=== PATIENT | male | born 1975 ===

== ENCOUNTER 2021-02-06 23:21 | Emergency (ER) | payer SELFPAY ==
[2021-02-06] MEDS ORDERED: Sodium Chloride 0.9% 10 ML Syringe FLUSH PRN (23:23)
[2021-02-06] MEDS ORDERED: Sodium Chloride 0.9% 2.5 ML Syringe FLUSH PRN (23:23)
[2021-02-06] MEDS ORDERED: Famotidine 20 MG/2 ML SDV IVPUSH ONE (23:23)
[2021-02-06] MEDS ORDERED: Alum Hydrox/Mag Hydrox/Simeth 15 ML, Lidocaine 2% 5 ML PO ONE ×2 (23:23)
[2021-02-06] MEDS ORDERED: Aspirin 81 MG Tab.Chew PO ONE (23:23)
--- NOTE | 2021-02-06 23:29 | EDM.PDOC ---
<Jose C Pedro - Last Filed: 02/07/21 06:05> ED HPI GENERAL MEDICAL PROBLEM - General Chief Complaint: Chest Pain Stated Complaint: CHEST PAIN Time Seen by Provider: 02/06/21 23:22 Source of Information: Reports: Patient History Limitations: Reports: No Limitations - History of Present Illness INITIAL COMMENTS - FREE TEXT/NARRATIVE: 45-year-old male remote history of methamphetamine use presents for chest pain. Patient denies any other past medical history. He does note that he ate some spicy peppers. He then began to experience a burning discomfort in his mid epigastrium and substernal chest. It is nonradiating. No associated shortness of breath, nausea, vomiting, diaphoresis. Has never had a stress test and has never had a cardiac cath. Mid chest Pain Score (Numeric/FACES): 7 - Related Data Allergies Allergy/AdvReac Type Severity Reaction Status Date / Time No Known Allergies Allergy Verified 02/06/21 23:31 Home Meds: Home Meds . [No Known Home Meds] 02/06/21 [History] ED ROS GENERAL - Review of Systems Review Of Systems: Comprehensive ROS is negative, except as noted in HPI. ED EXAM, GENERAL - Physical Exam Exam: See Below Exam Limited By: No Limitations General Appearance: Alert, WD/WN, No Apparent Distress Throat/Mouth: Normal Voice, No Airway Compromise Head: Atraumatic, Normocephalic Neck: Normal Inspection Respiratory/Chest: No Respiratory Distress, Lungs Clear, Normal Breath Sounds, No Accessory Muscle Use Cardiovascular: Normal Peripheral Pulses, Regular Rate, Rhythm, No Edema GI/Abdominal: Soft, Non-Tender Extremities: Normal Inspection Neurological: Alert Psychiatric: Normal Affect, Normal Mood Skin Exam: Warm, Dry, Intact, Normal Color #1 Interpretation EKG Date: 02/06/21 Time: 23:21 Rhythm: NSR Rate (Beats/Min): 65 [place]: Normal P-Wave: Present QRS: Normal ST-T: Normal QT: Normal NE/PQ Interval: 135 Comparison: NA - No Prior EKG EKG Interpretation Comments: TWI lead III, otherwise no ischemic changes noted, no prior for comparison Course - Re-Assessments/Exams Free Text/Narrative Re-Assessment/Exam: 02/06/21 23:37 Will give GI cocktail and Pepcid for potential GI etiology of patient's symptoms. Will give aspirin as well. We will follow up labs. 02/07/21 00:21 Patient's pain was poorly controlled after GI cocktail, aspirin, Pepcid. Morphine was given but patient's pain was still very poorly controlled so 1 mg of Dilaudid was ordered. Will get CTA chest abdomen and pelvis to rule out aortic dissection or other intrathoracic or intra-abdominal pathology. We will follow up results and disposition accordingly 02/07/21 03:00 Repeat troponin negative; will f/u CT imaging and disposition accordingly. 02/07/21 03:15 CT imaging does not reveal aortic dissection. 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 The gallbladder shows multiple gallstones with moderate gallbladder distention and mild pericholecystic stranding. Will get ultrasound when available to access for cholecystitis. Will give Zosyn while working up. Patient understands and is agreeable to wait until US is available at 7AM. He currently is comfortable and not requesting additional analgesia at this time. 02/07/21 06:05 Patient resting comfortably without complaints. 02/07/21 07:00 Patient care transitioned to Dr. Doss to follow-up ultrasound imaging and disposition Departure - Departure Disposition: Home, Self-Care 01 Clinical Impression: Cholelithiasis - Discharge Information Referrals: PCP,None [Primary Care Provider] - Forms: ED Department Discharge Additional Instructions: The following information is given to patients seen in the emergency department who are being discharged to home. This information is to outline your options for follow-up care. We provide all patients seen in our emergency department with a follow-up referral. The need for follow-up, as well as the timing and circumstances, are variable depending upon the specifics of your emergency department visit. If you don't have a primary care physician on staff, we will provide you with a referral. We always advise you to contact your personal physician following an emergency department visit to inform them of the circumstance of the visit and for follow-up with them and/or the need for any referrals to a consulting specialist. The emergency department will also refer you to a specialist when appropriate. This referral assures that you have the opportunity for follow-up care with a specialist. All of these measure are taken in an effort to provide you with optimal care, which includes your follow-up. Under all circumstances we always encourage you to contact your private physician who remains a resource for coordinating your care. When calling for follow-up care, please make the office aware that this follow-up is from your recent emergency room visit. If for any reason you are refused follow-up, please contact the [facility] Emergency Department at and asked to speak to the emergency department charge nurse. Please follow up with your primary care physician. If you do not have a primary care physician, see below: [facility] [address] [place] [id number] [facility] [address] [place] [address] Formerly [facility] [address] [place] [address], [address] [place] [address] Above is a number for general surgery that you can follow-up with as outpatient. If you continue to have pain in the area you may need to eventually have your gallbladder taken out but it does not need to be emergently removed. If you have intense pain not able to tolerate any food or water please return to the ED immediately. <Lloyd Doss - Last Filed: 02/07/21 09:09> Course - Vital Signs Last Recorded V/S: Last Vital Signs Temp 97.8 F 02/06/21 23:25 Pulse 81 02/07/21 06:38 Resp 18 02/07/21 05:50 BP 144/84 H 02/07/21 06:38 Pulse Ox 94 L 02/07/21 06:38 - Orders/Labs/Meds Orders: Active Orders 24 hr Category Date Time Status Cardiac Monitoring [RC] . DIRECTED Care 02/06/21 23:23 Active EKG Documentation Completion [RC] STAT Care 02/06/21 23:23 Active Pulse Oximetry [RC] ASDIRECTED Care 02/06/21 23:23 Active CULTURE URINE [RM] Stat Lab 02/07/21 01:42 Received Sodium Chloride 0.9% [Saline Flush] Med 02/06/21 23:23 Active 10 ml FLUSH ASDIRECTED PRN Sodium Chloride 0.9% [Saline Flush] Med 02/06/21 23:23 Active 2.5 ml FLUSH ASDIRECTED PRN Saline Lock Insert [OM.PC] Stat Oth 02/06/21 23:23 Ordered Medication Orders Sodium Chloride (Sodium Chloride 0.9% 10 Ml Syringe) 10 ml FLUSH ASDIRECTED PRN PRN Reason: Keep Vein Open Last Admin: 02/06/21 23:38 Dose: 10 ml Documented by: RASHAD Sodium Chloride (Sodium Chloride 0.9% 2.5 Ml Syringe) 2.5 ml FLUSH ASDIRECTED PRN PRN Reason: Keep Vein Open Last Admin: 02/06/21 23:38 Dose: 2.5 ml Documented by: RASHAD Labs: Laboratory Tests 02/06/21 02/06/21 02/06/21 Range/Units 23:30 23:30 23:30 WBC 9.51 (4.0-11.0) K/uL RBC 4.72 (4.50-5.90) M/uL Hgb 13.6 (13.0-17.0) g/dL Hct 41.0 (38.0-50.0) % MCV 86.9 (80.0-98.0) fL MCH 28.8 (27.0-32.0) pg MCHC 33.2 (31.0-37.0) g/dL RDW Std Deviation 43.5 (28.0-62.0) fl RDW Coeff of Camelia 14 (11.0-15.0) % Plt Count 243 (150-400) K/uL MPV 10.00 (7.40-12.00) fL Neut % (Auto) 74.2 (48.0-80.0) % Lymph % (Auto) 18.1 (16.0-40.0) % [place] % (Auto) 5.7 (0.0-15.0) % Eos % (Auto) 1.9 (0.0-7.0) % Baso % (Auto) 0.1 (0.0-1.5) % Neut # (Auto) 7.1 H (1.4-5.7) K/uL Lymph # (Auto) 1.7 (0.6-2.4) K/uL [place] # (Auto) 0.5 (0.0-0.8) K/uL Eos # (Auto) 0.2 (0.0-0.7) K/uL Baso # (Auto) 0.0 (0.0-0.1) K/uL Nucleated RBC % 0.0 /100WBC Nucleated RBCs # 0 K/uL INR APTT (18.6-31.3) SEC Lactate 1.5 (0.20-2.00) mmol/L Sodium 140 (136-148) mmol/L Potassium 3.8 (3.5-5.1) mmol/L Chloride 104 (98-107) mmol/L Carbon Dioxide 26.5 (21.0-32.0) mmol/L BUN 15 (7.0-18.0) mg/dL Creatinine 1.1 (0.8-1.3) mg/dL Est Cr Clr Drug Dosing 79.29 mL/min Estimated GFR (MDRD) > 60.0 ml/min Glucose 160 H (74-106) mg/dL Calcium 8.6 (8.5-10.1) mg/dL Total Bilirubin 0.2 (0.2-1.0) mg/dL AST 30 (15-37) IU/L ALT 44 (14-63) IU/L Alkaline Phosphatase 100 (46-116) U/L Troponin I < 0.050 (0.000-0.056) ng/mL Total Protein 7.6 (6.4-8.2) g/dL Albumin 3.7 (3.4-5.0) g/dL Globulin 3.9 (2.6-4.0) g/dL Albumin/Globulin Ratio 0.9 (0.9-1.6) Lipase 167 (73-393) U/L Urine Color Urine Appearance Urine pH (5.0-8.0) Ur Specific [place] (1.001-1.035) Urine Protein (NEGATIVE) mg/dL Urine Glucose (UA) (NEGATIVE) mg/dL Urine Ketones (NEGATIVE) mg/dL Urine Occult Blood (NEGATIVE) Urine Nitrite (NEGATIVE) Urine Bilirubin (NEGATIVE) Urine Urobilinogen (<2.0) EU/dL Ur Leukocyte Esterase (NEGATIVE) Urine RBC (0-2/HPF) Urine WBC (0-5/HPF) Ur Epithelial Cells (NONE-FEW) Urine Bacteria (NEGATIVE) Urine Mucus (NONE-MOD) Urine Opiates Screen (NEGATIVE) Ur Oxycodone Screen (NEGATIVE) Urine Methadone Screen (NEGATIVE) Ur Barbiturates Screen (NEGATIVE) Ur Phencyclidine Scrn (NEGATIVE) Ur Amphetamine Screen (NEGATIVE) U Methamphetamines Scrn (NEGATIVE) U Benzodiazepines Scrn (NEGATIVE) U Cocaine Metab Screen (NEGATIVE) U Marijuana (THC) Screen (NEGATIVE) Ethyl Alcohol <3 mg/dL 02/06/21 02/07/21 02/07/21 Range/Units 23:30 01:42 01:42 WBC (4.0-11.0) K/uL RBC (4.50-5.90) M/uL Hgb (13.0-17.0) g/dL Hct (38.0-50.0) % MCV (80.0-98.0) fL MCH (27.0-32.0) pg MCHC (31.0-37.0) g/dL RDW Std Deviation (28.0-62.0) fl RDW Coeff of Camelia (11.0-15.0) % Plt Count (150-400) K/uL MPV (7.40-12.00) fL Neut % (Auto) (48.0-80.0) % Lymph % (Auto) (16.0-40.0) % [place] % (Auto) (0.0-15.0) % Eos % (Auto) (0.0-7.0) % Baso % (Auto) (0.0-1.5) % Neut # (Auto) (1.4-5.7) K/uL Lymph # (Auto) (0.6-2.4) K/uL [place] # (Auto) (0.0-0.8) K/uL Eos # (Auto) (0.0-0.7) K/uL Baso # (Auto) (0.0-0.1) K/uL Nucleated RBC % /100WBC Nucleated RBCs # K/uL INR 1.00 APTT 25.7 (18.6-31.3) SEC Lactate (0.20-2.00) mmol/L Sodium (136-148) mmol/L Potassium (3.5-5.1) mmol/L Chloride (98-107) mmol/L Carbon Dioxide (21.0-32.0) mmol/L BUN (7.0-18.0) mg/dL Creatinine (0.8-1.3) mg/dL Est Cr Clr Drug Dosing mL/min Estimated GFR (MDRD) ml/min Glucose (74-106) mg/dL Calcium (8.5-10.1) mg/dL Total Bilirubin (0.2-1.0) mg/dL AST (15-37) IU/L ALT (14-63) IU/L Alkaline Phosphatase (46-116) U/L Troponin I (0.000-0.056) ng/mL Total Protein (6.4-8.2) g/dL Albumin (3.4-5.0) g/dL Globulin (2.6-4.0) g/dL Albumin/Globulin Ratio (0.9-1.6) Lipase (73-393) U/L Urine Color YELLOW Urine Appearance SLT CLOUDY Urine pH 7.5 (5.0-8.0) Ur Specific [place] 1.015 (1.001-1.035) Urine Protein NEGATIVE (NEGATIVE) mg/dL Urine Glucose (UA) NEGATIVE (NEGATIVE) mg/dL Urine Ketones NEGATIVE (NEGATIVE) mg/dL Urine Occult Blood SMALL H (NEGATIVE) Urine Nitrite NEGATIVE (NEGATIVE) Urine Bilirubin NEGATIVE (NEGATIVE) Urine Urobilinogen 0.2 (<2.0) EU/dL Ur Leukocyte Esterase SMALL H (NEGATIVE) Urine RBC 1-3 (0-2/HPF) Urine WBC 25-30 (0-5/HPF) Ur Epithelial Cells FEW (NONE-FEW) Urine Bacteria FEW (NEGATIVE) Urine Mucus LIGHT (NONE-MOD) Urine Opiates Screen POSITIVE (NEGATIVE) Ur Oxycodone Screen NEGATIVE (NEGATIVE) Urine Methadone Screen NEGATIVE (NEGATIVE) Ur Barbiturates Screen NEGATIVE (NEGATIVE) Ur Phencyclidine Scrn NEGATIVE (NEGATIVE) Ur Amphetamine Screen POSITIVE (NEGATIVE) U Methamphetamines Scrn POSITIVE (NEGATIVE) U Benzodiazepines Scrn NEGATIVE (NEGATIVE) U Cocaine Metab Screen NEGATIVE (NEGATIVE) U Marijuana (THC) Screen NEGATIVE (NEGATIVE) Ethyl Alcohol mg/dL 02/07/21 Range/Units 02:20 WBC (4.0-11.0) K/uL RBC (4.50-5.90) M/uL Hgb (13.0-17.0) g/dL Hct (38.0-50.0) % MCV (80.0-98.0) fL MCH (27.0-32.0) pg MCHC (31.0-37.0) g/dL RDW Std Deviation (28.0-62.0) fl RDW Coeff of Camelia (11.0-15.0) % Plt Count (150-400) K/uL MPV (7.40-12.00) fL Neut % (Auto) (48.0-80.0) % Lymph % (Auto) (16.0-40.0) % [place] % (Auto) (0.0-15.0) % Eos % (Auto) (0.0-7.0) % Baso % (Auto) (0.0-1.5) % Neut # (Auto) (1.4-5.7) K/uL Lymph # (Auto) (0.6-2.4) K/uL [place] # (Auto) (0.0-0.8) K/uL Eos # (Auto) (0.0-0.7) K/uL Baso # (Auto) (0.0-0.1) K/uL Nucleated RBC % /100WBC Nucleated RBCs # K/uL INR APTT (18.6-31.3) SEC Lactate (0.20-2.00) mmol/L Sodium (136-148) mmol/L Potassium (3.5-5.1) mmol/L Chloride (98-107) mmol/L Carbon Dioxide (21.0-32.0) mmol/L BUN (7.0-18.0) mg/dL Creatinine (0.8-1.3) mg/dL Est Cr Clr Drug Dosing mL/min Estimated GFR (MDRD) ml/min Glucose (74-106) mg/dL Calcium (8.5-10.1) mg/dL Total Bilirubin (0.2-1.0) mg/dL AST (15-37) IU/L ALT (14-63) IU/L Alkaline Phosphatase (46-116) U/L Troponin I < 0.050 (0.000-0.056) ng/mL Total Protein (6.4-8.2) g/dL Albumin (3.4-5.0) g/dL Globulin (2.6-4.0) g/dL Albumin/Globulin Ratio (0.9-1.6) Lipase (73-393) U/L Urine Color Urine Appearance Urine pH (5.0-8.0) Ur Specific [place] (1.001-1.035) Urine Protein (NEGATIVE) mg/dL Urine Glucose (UA) (NEGATIVE) mg/dL Urine Ketones (NEGATIVE) mg/dL Urine Occult Blood (NEGATIVE) Urine Nitrite (NEGATIVE) Urine Bilirubin (NEGATIVE) Urine Urobilinogen (<2.0) EU/dL Ur Leukocyte Esterase (NEGATIVE) Urine RBC (0-2/HPF) Urine WBC (0-5/HPF) Ur Epithelial Cells (NONE-FEW) Urine Bacteria (NEGATIVE) Urine Mucus (NONE-MOD) Urine Opiates Screen (NEGATIVE) Ur Oxycodone Screen (NEGATIVE) Urine Methadone Screen (NEGATIVE) Ur Barbiturates Screen (NEGATIVE) Ur Phencyclidine Scrn (NEGATIVE) Ur Amphetamine Screen (NEGATIVE) U Methamphetamines Scrn (NEGATIVE) U Benzodiazepines Scrn (NEGATIVE) U Cocaine Metab Screen (NEGATIVE) U Marijuana (THC) Screen (NEGATIVE) Ethyl Alcohol mg/dL Meds: Medications Generic Name Dose Route Start Last Admin Trade Name Williamq PRN Reason Stop Dose Admin Sodium Chloride 10 ml 02/06/21 23:23 02/06/21 23:38 Sodium Chloride 0.9% 10 Ml Syringe FLUSH 10 ml ASDIRECTED PRN Administration Keep Vein Open Sodium Chloride 2.5 ml 02/06/21 23:23 02/06/21 23:38 Sodium Chloride 0.9% 2.5 Ml Syringe FLUSH 2.5 ml ASDIRECTED PRN Administration Keep Vein Open Discontinued Medications Generic Name Dose Route Start Last Admin Trade Name Vinnie PRN Reason Stop Dose Admin Aspirin 324 mg 02/06/21 23:23 02/06/21 23:37 Aspirin 81 Mg Tab.Chew PO 02/06/21 23:24 324 mg ONETIME ONE Administration Al Hydroxide/Mg Hydroxide 15 0 ml 02/06/21 23:23 02/06/21 23:37 ml/ Lidocaine HCl 5 ml PO 02/06/21 23:24 1 each ONETIME ONE Administration Famotidine 20 mg 02/06/21 23:23 02/06/21 23:37 Famotidine 20 Mg/2 Ml Sdv IVPUSH 02/06/21 23:24 20 mg ONETIME ONE Administration Hydromorphone HCl 1 mg 02/07/21 00:12 02/07/21 00:18 Hydromorphone 1 Mg/Ml Syringe IVPUSH 02/07/21 00:13 1 mg ONETIME ONE Administration Sodium Chloride Confirm 02/07/21 03:20 02/07/21 05:56 Normal Saline Administered 02/07/21 03:21 Not Given Dose 50 mls @ as directed .ROUTE .STK-MED ONE Piperacillin Sod/Tazobactam 50 mls @ 100 mls/hr 02/07/21 05:50 02/07/21 05:55 Sod 3.375 gm/ Sodium Chloride IV 02/07/21 06:19 100 mls/hr ONETIME ONE Administration Iopamidol 100 ml 02/07/21 01:40 02/07/21 01:41 Iopamidol 755 Mg/Ml 500 Ml Multipack Bottle IVPUSH 02/07/21 01:41 100 ml ONETIME STA Administration Morphine Sulfate 4 mg 02/06/21 23:50 02/06/21 23:56 Morphine 4 Mg/Ml Syringe IVPUSH 02/06/21 23:51 4 mg ONETIME ONE Administration - Re-Assessments/Exams Free Text/Narrative Re-Assessment/Exam: 02/07/21 09:06 Patient was signed out during a ultrasound. Ultrasound showed cholelithiasis patient pain control is tolerating p.o. had a Gatorade at the bedside. Patient will be discharged with surgery follow-up. Patient given strict return precautions. Departure - Departure Time of Disposition: 09:08 Condition: Good - Discharge Information *PRESCRIPTION DRUG MONITORING PROGRAM REVIEWED*: Not Applicable *COPY OF PRESCRIPTION DRUG MONITORING REPORT IN PATIENT JENNIFER: Not Applicable Sepsis Event Note (ED) - Focused Exam Vital Signs: Vital Signs Temp Pulse Resp BP Pulse Ox 02/07/21 06:38 81 144/84 H 94 L 02/07/21 05:50 78 18 110/59 L 94 L 02/07/21 04:50 68 18 113/70 98 02/07/21 03:50 73 18 135/82 98 02/07/21 01:44 70 20 161/94 H 97 02/06/21 23:25 97.8 F 70 20 175/105 H 98
[2021-02-06] MEDS ORDERED: Morphine 4 MG/ML Syringe IVPUSH ONE (23:50)
--- NOTE | 2021-02-06 23:58 | CR ---
INDICATION: Chest pain after eating spicy food TECHNIQUE: Chest radiograph 1 view COMPARISON: None FINDINGS: Moderate degradation of image quality noted due to body habitus. Mediastinum: The mediastinum is normal in appearance. The heart silhouette is normal in size and morphology. Lung: Small lung volumes are present with perihilar atelectasis and mild bibasilar subsegmental atelectasis is seen. No sign of pleural effusion seen. No pneumothorax is identified. Bone and Soft tissue: Unremarkable for age. IMPRESSION: 1. Small lung volumes are present with perihilar atelectasis and mild bibasilar subsegmental atelectasis is seen. Dictated by Miles Ladd MD @ 02/06/2021 11:57:41 PM Dictated by: Miles Ladd MD @ 02/06/2021 23:57:46 (Electronically Signed)
[2021-02-07 00:04] LABS: BLOOD UREA NITROGEN,BUN 15 mg/dL (7.0-18.0); CARBON DIOXIDE,CO2 26.5 mmol/L (21.0-32.0); CHLORIDE,CL 104 mmol/L (98-107); GLUCOSE RANDOM 160 mg/dL (74-106); LIPASE 167 U/L (73-393); POTASSIUM,K 3.8 mmol/L (3.5-5.1); SODIUM,NA 140 mmol/L (136-148)
[2021-02-07] MEDS ORDERED: HYDROmorphone 1 MG/ML Syringe IVPUSH ONE (00:12)
[2021-02-07] MEDS ORDERED: Iopamidol 755 MG/ML 500 ML Multipack Bottle IVPUSH STA (01:40)
--- NOTE | 2021-02-07 03:05 | CT ---
CT ANGIOGRAM CHEST WITH CONTRAST, 02/07/2021 CT ANGIOGRAM ABDOMEN AND PELVIS WITH CONTRAST, 02/07/2021 CLINICAL HISTORY: Evaluate for dissection. COMPARISON: None available. TECHNIQUE: CTA of the chest, abdomen, and pelvis. 100 cc Isovue 370 injected intravenously. FINDINGS: Mild ectasia of the ascending thoracic aorta to 4.0 cm. Unable to evaluate for an intramural hematoma given the lack of a non-contrast exam. No transverse or descending thoracic aortic dissection. No abnormal aortic dissection. There is too much motion and streak artifact in the ascending thoracic aorta to exclude an injury. No obvious injury seen however. The proximal micro arteries are patent. No central pulmonary artery embolism. The visceral arteries are patent. No abdominal aortic aneurysm. The iliac arteries are patent. No pneumothorax or pleural effusion. Lower lobe geographic hazy attenuation likely represents subsegmental areas of atelectasis and is likely related to technique, although there could be an element of minimal small airways disease/obstruction. Arterial phase imaging limits evaluation of the solid organs and bowel. Non-cirrhotic liver morphology. Proximal segment of the rectum near at or near the rectosigmoid junction which could be due to decompressed state, although there is minimal stranding in the fat surrounding this region. Additionally, in the intraperitoneal space, a linear foreign body measuring roughly 50 cm along the transverse colon and descending colon of unknown etiology. Left-sided gynecomastia. IMPRESSION: 1. Mild ectasia of the ascending thoracic aorta. No dissection of the transverse or descending thoracic aorta or abdominal aorta. There is too much motion in the ascending aorta to exclude a subtle injury. 2. No central pulmonary artery embolism. 3. Approximately 50 cm radiopaque linear foreign body in the intraperitoneal space, as outlined above. Correlate clinically with history. 4. Apparent wall thickening in the region of the rectosigmoid junction with apparent focal luminal narrowing and large rectal stool ball. Correlate clinically. Consider endoscopy. Luis Rodriguez M.D. Interventional Radiology/Diagnostic Radiology (IR/DR) [email or web address] ALFRED/mason cuevas/Dictated by: Luis Rodriguez MD @ 02/07/2021 9:15:00 AM (Electronically Signed)
[2021-02-07] MEDS ORDERED: Sodium Chloride 0.9% 50 ML ONE (03:20)
[2021-02-07] MEDS ORDERED: Piperacillin/Tazobactam 3.375 GM in Sodium Chloride 0.9% 50 ML IV ONE (05:50)
--- NOTE | 2021-02-07 08:54 | US ---
INDICATION: Abdominal pain TECHNIQUE: Ultrasound abdomen complete. Sonographic images of the entire abdomen were obtained using fitzpatrick-scale and color Doppler. COMPARISON: None. FINDINGS: Liver: Normal in size and echotexture. No masses. No intrahepatic biliary dilatation. Gallbladder: There is demonstration of a large calcified gallstone within the dependent gallbladder. There are additional smaller calculi appreciated.. Normal wall thickness. No pericholecystic fluid. Common bile duct: 3 mm. Pancreas: The pancreas is somewhat poorly visualized due to overlying bowel gas. Spleen: Normal in size and appearance. Kidneys: Both kidneys are normal in size. There is a questionable cyst within the right kidney however overlying bowel gas somewhat obscures evaluation of the kidney. Normal echotexture and cortex. No masses, stones, or hydronephrosis. Vasculature: Proximal abdominal aorta and IVC are normal in caliber. IMPRESSION: Cholelithiasis without definite evidence of acute cholecystitis. Questionable cyst within the right kidney however evaluation is limited due to overlying bowel gas. Dictated by Juan Ledbetter MD @ Feb 07 2021 8:36AM Signed by Dr. Juan Ledbetter @ Feb 07 2021 8:54AM
== END 2021-02-07 09:34 | disposition home or self-care (01) ==
LOC: MW.ED 23:21
DX: K80.20 Calculus of gallbladder without cholecystitis without obstruction (principal)
CPT/HCPCS: 36415; 71045; 71275; 74174; 76700; 80053; 80305; 80307; 81001; 83605; 83690; 84484; 85025; 85610; 85730; 87086; 93005; 96365; 96375; 99285; A9270; J1170; J2270; J2543; J3490; Q9967; 93010; 99284